=== PATIENT | male | born 1995 | race Two or more races ===

== ENCOUNTER 2016-11-27 11:52 | Emergency (ER) | payer OTHER ==
[2016-11-27 11:58] VITALS: BP 123/81; PULSE 64; TEMP 98.6; BMI 21.4
--- NOTE | 2016-11-27 13:43 | PDOC ---
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 pt has no medical history or allergies. tetanus less than 4 yrs ago. Past History - Past Medical History Allergies/Adverse Reactions: Allergies Allergy/AdvReac Type Severity Reaction Status Date / Time No Known Allergies Allergy Verified 11/27/16 11:58 Home Medications: Ambulatory Orders Ibuprofen [Motrin -] 600 mg PO TID #21 tablet 11/01/15 Cephalexin Monohydrate [Keflex -] 250 mg PO Q8H #21 capsule 11/27/16 Oxycodone HCl/Acetaminophen [Percocet 5-325 mg Tablet] 1 - 2 tab PO Q6H PRN #10 tab MDD 6 tabs 11/27/16 Other medical history: denies - Suicide/Smoking/Psychosocial Hx Smoking History: Never smoked Information on smoking cessation initiated: No Hx Alcohol Use: No Drug/Substance Use Hx: No Substance Use Type: None *Physical Exam - Vital Signs Last Vital Signs Temp Pulse Resp BP Pulse Ox 98.6 F 64 18 123/81 100 11/27/16 11:56 11/27/16 11:56 11/27/16 11:56 11/27/16 11:56 11/27/16 11:56 - Physical Exam General Appearance: Yes: Nourished, Appropriately Dressed HEENT: positive: EOMI, KARRI Respiratory/Chest: positive: Lungs Clear, Normal Breath Sounds Cardiovascular: positive: Regular Rhythm, Regular Rate Extremity: positive: Normal Capillary Refill, Other (left palm with 3cm v shaped laceration to the deuardo at the base of thumb /thenar space , pain to the thumb, FROM of the digit with pain , limited range of motion of the second digit with increased sensation ) Integumentary: positive: Normal Color, Dry, Warm Neurologic: positive: Fully Oriented, Alert, Normal Mood/Affect, Normal Response , Motor Strength 5/5 Procedures - Laceration/Wound Repair Left Volar Hand Wound Length: 2.6 to 5.0 cm Wound Explored: clean Wound's Depth, Shape: irregular (v shape) Irrigated w/ Saline: Yes Betadine Prep: Yes Anesthesia: 1% Lidocaine Amount of Anesthetic (ccs): 4 Suture Size/Type: 4:0, nylon Number of Sutures: 5 Layer Closure: No Sterile Dressing Applied: Yes Medical Decision Making - Medical Decision Making 11/27/16 13:46 cc: left hand with 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 11/27/16 14:05 I have made an appointment for Wednesday November 30, 2016 with hand surgeon at [facility] [address] [place] [address] 1 floor 11 at 8am. Pt has been given this information via a hand almond blancher. Pt is aware the importance to follow up as pt may have nerve or tendon injury and follow up is critical. 11/27/16 14:08 *DC/Admit/Observation/Transfer Diagnosis at time of Disposition: Laceration - Discharge Dispostion Disposition: HOME Condition at time of disposition: Improved - Prescriptions Prescriptions: Cephalexin Monohydrate [Keflex -] 250 mg PO Q8H #21 capsule Oxycodone HCl/Acetaminophen [Percocet 5-325 mg Tablet] 1 - 2 tab PO Q6H PRN #10 tab MDD 6 tabs PRN Reason: Severe Pain - Patient Instructions Additional Instructions: please follow up with Dr.Lomita [facility] Wednesday November 30, 2016 at 8am [address] [facility] [address] [phone] keep the wound dry and clean take the medication as prescribed NO WORK remove the bandage in 2 days and apply a non stick bandaid to cover the wound srvase seguir con Dr[facility]Lomita [facility] [place] 2016 a las 8am [address] [facility] [place] [address] 11 mantener la herida seca y limpia tome la medicacin segn lo prescrito NINGN TRABAJO retire el vendaje en 2 pop y aplique dorys bandaid antiadherente para cubrir la herida - Post Discharge Activity Forms/Work/School Notes: Back to Work
--- NOTE | 2016-11-30 10:56 | PDOC ---
Patient Follow-up (Call Back) - Post ED Follow - Up Condition at time of discharge: Improved Disposition at time of original discharge: HOME Signs/Symptoms Improved: Yes - Disposition Additional Instructions/Notes: spoke to pt via drill punch operator Miki (medical conceirge). Pt saw the hand specialist today and was evaluated, pt to follow up in 10 days for suture removal with the hand surgeon. Pt has no complaints is grateful and satisified with the care.
== END 2016-11-27 14:21 | disposition home or self-care (01) ==
LOC: JERFT 11:52
PROC: 0HQGXZZ Repair Left Hand Skin, External Approach (ICD-10-PCS; principal; 2016-11-27)
DX: S61.412A Laceration without foreign body of left hand, initial encounter (principal); W26.0XXA Contact with knife, initial encounter; Y93.89 Activity, other specified; Y92.89 Other specified places as the place of occurrence of the external cause; Y99.0 Civilian activity done for income or pay
CPT/HCPCS: 99281-25

== ENCOUNTER 2017-04-22 22:18 | Emergency (ER) | payer SELFPAY ==
[2017-04-22 23:04] VITALS: BP 131/60; PULSE 70; TEMP 97.5; BMI 16.7
[2017-04-22] MEDS ORDERED: SODIUM CHLORIDE 1,000 ML IV STA (23:32)
[2017-04-22] MEDS ORDERED: METOCLOPRAMIDE HCL INJECTION 10 MG/2 ML VIAL IVPUSH ONE (23:33)
--- NOTE | 2017-04-22 23:37 | PDOC ---
History of Present Illness - General Chief Complaint: Headache Stated Complaint: HEADACHE Time Seen by Provider: 04/22/17 23:09 History Source: Patient Exam Limitations: No Limitations - History of Present Illness Initial Comments: 04/22/17 23:34 Best Contact: Pmhx: Migraines Pshx:N/A Allergies:NKDA 22-year-old male presents to the emergency department complaining of bitemporal/ frontal headache with photophobia and phonophobia 3 days without fever, chills , nausea/vomiting facial pains, nasal congestion, earaches, neck stiffness/pain , back pains, chest pain, shortness of breath, abdominal pains, Devin numbness or tingling sensation. Patient states he did not take any medication for his headache. Patient states it feels similar to his previous migraines. Timing/Duration: reports: other (x3d) Past History - Past Medical History Allergies/Adverse Reactions: Allergies Allergy/AdvReac Type Severity Reaction Status Date / Time No Known Allergies Allergy Verified 04/22/17 22:54 Home Medications: Ambulatory Orders NK [No Known Home Medication] 02/01/17 Anemia: No Asthma: No Cancer: No Cardiac Disorders: No CVA: No COPD: No CHF: No Dementia: No Diabetes: No GI Disorders: No Disorders: No HTN: No Hypercholesterolemia: No Liver Disease: No Seizures: No Thyroid Disease: No Other medical history: Pt denies - Suicide/Smoking/Psychosocial Hx Smoking History: Never smoked Have you smoked in the past 12 months: No Information on smoking cessation initiated: No Hx Alcohol Use: No Drug/Substance Use Hx: No Substance Use Type: None Hx Substance Use Treatment: No Review of Systems - Review of Systems Able to Perform ROS?: Yes Comments:: 04/22/17 23:35 CONSTITUTIONAL: Absent: fever, chills, diaphoresis, generalized weakness, malaise, loss of appetite HEENT: Absent: rhinorrhea, nasal congestion, throat pain, throat swelling, difficulty swallowing, mouth swelling, ear pain, eye pain, visual Changes CARDIOVASCULAR: Absent: chest pain, loss of consciousness, palpitations, irregular heart rate, peripheral edema RESPIRATORY: Absent: cough, shortness of breath, dyspnea with exertion, orthopnea, wheezing, stridor, hemoptysis GASTROINTESTINAL: Absent: abdominal pain, abdominal distension, nausea, vomiting, diarrhea, constipation, melena, hematochezia MUSCULOSKELETAL: Absent: myalgia, arthralgia, joint swelling SKIN: Absent: rash, itching, pallor HEMATOLOGIC/IMMUNOLOGIC: Absent: easy bleeding, easy bruising, lymphadenopathy, frequent infections ENDOCRINE: Absent: unexplained weight gain, unexplained weight loss, heat intolerance, cold intolerance NEUROLOGIC: +bitemporal/frontal castro Absent: focal weakness or paresthesias, dizziness, unsteady gait, seizure, mental status changes, bladder or bowel incontinence PSYCHIATRIC: Absent: anxiety, depression, suicidal or homicidal ideation, hallucinations. Is the patient limited [place] proficient: No *Physical Exam - Vital Signs Last Vital Signs Temp Pulse Resp BP Pulse Ox 97.5 F L 70 18 131/60 98 04/22/17 22:55 04/22/17 22:55 04/22/17 22:55 04/22/17 22:55 04/22/17 22:55 - Physical Exam Comments: 04/22/17 23:35 GENERAL: Well developed, well nourished. Awake and alert. No acute distress. HEENT: Normocephalic, atraumatic. PERRLA, EOMI. No conjunctival pallor. Sclera are non- icteric. Moist mucous membranes. Oropharynx is clear. NECK: Supple. Full ROM. No JVD. Carotid pulses 2+ and symmetric, without bruits. No thyromegaly. No lymphadenopathy. CARDIOVASCULAR: Regular rate and rhythm. No murmurs, rubs, or gallops. Distal pulses are 2+ and symmetric. PULMONARY: No evidence of respiratory distress. Lungs clear to auscultation bilaterally. No wheezing, rales or rhonchi. ABDOMINAL: Soft. Non-tender. Non-distended. No rebound or guarding. No organomegaly. Normoactive bowel sounds. MUSCULOSKELETAL Normal range of motion at all joints. No bony deformities or tenderness. No CVA tenderness. EXTREMITIES: No cyanosis. No clubbing. No edema. No calf tenderness. SKIN: Warm and dry. Normal capillary refill. No rashes. No jaundice. NEUROLOGICAL: Alert, awake, appropriate. Cranial nerves 2-12 intact. No deficits to light touch and temperature in face, upper extremities and lower extremities. No motor deficits in the in face, upper extremities and lower extremities. Normoreflexic in the upper and lower extremities. Normal speech. Toes are down- going bilaterally. Gait is normal without ataxia. PSYCHIATRIC: Cooperative. Good eye contact. Appropriate mood and affect. Progress Note - Progress Note Progress Note: 0015hrs: Pt is pain free *DC/Admit/Observation/Transfer Diagnosis at time of Disposition: Migraine Qualifiers: Migraine type: unspecified Status migrainosus presence: without status migrainosus Intractability: not intractable Qualified Code(s): G43.909 - Migraine, unspecified, not intractable, without status migrainosus - Discharge Dispostion Condition at time of disposition: Stable Admit: No - Referrals Referrals: Andrew Carrillo MD [Staff Physician] - - Patient Instructions Printed Discharge Instructions: DI for Migraine Additional Instructions: Increase fluids Take Tylenol alternating with Motrin as needed for your headache Follow with the neurologist Return back to the emergency department for severe/persistent or worsening symptoms Print Language: SINHALA - Post Discharge Activity Forms/Work/School Notes: Back to Work
[2017-04-22] MEDS ORDERED: METOCLOPRAMIDE HCL INJECTION 10 MG/2 ML VIAL ONE (23:44)
[2017-04-22] MEDS ORDERED: ACETAMINOPHEN 500 MG TABLET (FP) PO ONE (23:57)
[2017-04-22] MEDS ORDERED: ACETAMINOPHEN 500 MG TABLET (FP) ONE (23:58)
== END 2017-04-23 00:30 | disposition home or self-care (01) ==
LOC: JERFT 22:18
PROC: 3E033GC Introduction of Other Therapeutic Substance into Peripheral Vein, Percutaneous Approach (ICD-10-PCS; principal; 2017-04-22)
PROC: 3E0337Z Introduction of Electrolytic and Water Balance Substance into Peripheral Vein, Percutaneous Approach (ICD-10-PCS; 2017-04-22)
DX: G43.909 Migraine, unspecified, not intractable, without status migrainosus (principal)
CPT/HCPCS: 99281-25